=== PATIENT | female | born 1935 | race Two or more races ===

== ENCOUNTER → 2016-09-01 | Day surgery (SDC) | payer OTHER ==
[~2016-09-01] MED LIST: BACITRACIN TOP OINT 15 GM TUBE ONE; BUPIVACAINE/EPINEPHRINE 0.25% PF 30 ML VIAL ONE; LACTATED RINGER'S 1000 ML INJ 1,000 ML ONE; ONDANSETRON HCL 4 MG/2 ML VIAL IV PUSH ONE; ONDANSETRON HCL 4 MG/2 ML VIAL ONE; PROPOFOL 100 MG/10 ML INJ IV ONE; ceFAZolin 2 GM PREMIX 50 ML ONE
--- NOTE | 2016-09-04 11:31 | TN ---
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 PROCEDURE Wide excision of left dorsal hand thin melanoma and full-thickness skin graft 3 cm x 3 cm. ANESTHESIA General and local anesthetic. COMPLICATIONS None. BLOOD LOSS Less than 10 cc. INDICATIONS FOR PROCEDURE The patient is a 81-year-old female with a thin melanoma left hand. The patient clinically was node-negative and her melanoma was less than 1 mm and appeared to be not aggressive. After discussion with the patient as well as the patient's family about the risks, benefits, alternatives to wide excision and possible skin graft as well as a sentinel lymph node biopsy the patient and family wished to forego sentinel lymph node biopsy and continued bia surveillance to minimize the surgery and stress on the patient. PROCEDURE IN DETAIL After informed was obtained the patient was taken to the operating room at the [facility] and placed under general anesthesia. The patient's left upper extremity were prepped and draped under sterile fashion. A time-out was performed. The area of the planned excision was marked out for 1 cm, 360 degrees. We also used the area of the left medial arm over the triceps muscle and marked this out for a skin graft donor site. We used local anesthetic at both sites with 0.25% Marcaine. We excised the elliptical incision approximately 8 cm x 3 cm in the left medial upper arm with a 15 blade scalpel. Used bovie electrocautery to get hemostasis. We closed this with 3-0 Vicryl sutures and 4-0 Monocryl and Dermabond without difficulty and minimal tension. A skin graft was kept on saline. We then turned our attention to the wide excision. We excised 1 cm and 360 degrees around the patient's previous biopsy scar with a 15 blade scalpel. This was taken all the way down to the extensor fascia of the hand. This was marked with a stitch proximal and passed off for permanent processing. We got excellent hemostasis with a Bovie electrocautery. We then took our skin graft and custom cut this to 3 cm x 3 cm for our defect. We prepped this appropriately with defatting the graft. This was also pie crusted with a 19 gauge needle in standard fashion. We then sewed this in place with good opposition with 4-0 chromic sutures. We had a god technical result and we then placed our dressing. We placed bacitracin ointment, Xeroform and gauze and hand splint to the graft site and the hand and wrist. The patient at this point in time was discontinued from the anesthesia, taken to the PACU in stable condition. The patient tolerated the procedure well. No apparent complications. All counts were correct. I was present and scrubbed for the entire procedure. MD JENN MercadoG/KARMEN /10:18 PM /11:03 AM MTDPatel
== END | disposition home or self-care (01) ==
LOC: ESDC 08:56
PROVIDERS: ATTEND Surgery
DX: C43.62 Malignant melanoma of left upper limb, including shoulder (principal)
CPT/HCPCS: 00400; 11623; 15240; 88305; J0690; J2405; J3010; J7120